=== PATIENT | female | born 1965 | race Caucasian/White ===

== ENCOUNTER → 2021-10-07 | Day surgery (SDC) | payer OTHER ==
[~2021-10-07] MED LIST: LEVOTHYROXINE75 MC1 PO; LOSARTAN POTASS25 MG PO; MAGNESIUM500 MG PO; PREBIOTIC PO; PROBIOTIC PO; VITAMIN B12 PO; VITAMIN D3125 MCG PO
== END | disposition home or self-care (01) ==
LOC: OR 05:25
DX: Z12.11 Encounter for screening for malignant neoplasm of colon (principal); I10 Essential (primary) hypertension; Z88.5 Allergy status to narcotic agent; Z79.899 Other long term (current) drug therapy; Z20.822 Contact with and (suspected) exposure to COVID-19
CPT/HCPCS: J2704; J7030